=== PATIENT | male | born 1975 | race Caucasian/White ===

== ENCOUNTER 2021-06-22 16:26 | Emergency (ER) | payer BC ==
[~2021-06-22] VITALS: Ht 177.8 cm; Wt 122.5 kg
[2021-06-22 16:28] VITALS: BP 124/79
[2021-06-22] MEDS ORDERED: KETOROLAC 60 MG VIAL (30MG/ML) IM ONE (17:00)
[2021-06-22] MEDS ORDERED: CYCLOBENZAPRINE HCL 10 MG TABLET PO ONE (17:00)
[2021-06-22] MEDS ORDERED: KETOROLAC 60 MG VIAL (30MG/ML) ONE (17:11)
[2021-06-22] MEDS ORDERED: CYCLOBENZAPRINE HCL 10 MG TABLET ONE (17:12)
[2021-06-22] MEDS ORDERED: KETO10 PO (17:29)
[2021-06-22] MEDS ORDERED: CYCL10TA16 PO (17:29)
== END 2021-06-22 17:39 | disposition home or self-care (01) ==
LOC: EDH 16:26
DX: S76.012A Strain of muscle, fascia and tendon of left hip, initial encounter (principal); E78.00 Pure hypercholesterolemia, unspecified; I10 Essential (primary) hypertension; E66.9 Obesity, unspecified; Z91.013 Allergy to seafood; Z79.1 Long term (current) use of non-steroidal anti-inflammatories (NSAID); Z68.38 Body mass index [BMI] 38.0-38.9, adult; X58.XXXA Exposure to other specified factors, initial encounter; Y93.89 Activity, other specified; Y92.89 Other specified places as the place of occurrence of the external cause; Y99.8 Other external cause status
CPT/HCPCS: 96372; 99284; J1885